=== PATIENT | female | born 1940 | race Caucasian/White ===

== ENCOUNTER 2019-04-20 06:17 | Inpatient (IN) ==
[2019-04-20] MEDS ORDERED: ALBUTEROL/IPRATROPIUM 3 ML NEB RESP TX PRN (08:55)
[2019-04-20] MEDS ORDERED: WARFARIN 2.5 MG TABLET PO SCH (09:00)
[2019-04-20] MEDS: niCARdipine INJ 25 MG in SODIUM CHLORIDE 0.9% 240 ML IV PRN ×2 (09:15→15:03)
[2019-04-20 11:00] LABS: Basophils % 0.5 % (0.0-0.8); Eosinophils # 0.2 10*3/uL (0.0-0.87); Hematocrit 37.7 VOL% (35.7-47.0); Hemoglobin 12.2 GM/DL (12.0-16.0); Immature Granulocytes % 0.9 %; Immature Granulocytes Absolute 0.07 #; Lymphocytes % 12.4 % (21.3-54.2); Mean Corpuscular HGB Conc 32.4 GM/DL (32-36); Mean Corpuscular Volume 97.2 FL (87-102); Mean Platelet Volume 10.2 FL (9.6-12.0); Monocytes % 7.2 % (1.7-12.7); Platelet Count 258 T/CUMM (130-400); Red Blood Count 3.88 MC/CUMM (3.8-5.5); Red Cell Distribution Width 13.6 % (9.3-17.3); White Blood Count 7.8 T/CUMM (4-12)
[2019-04-20 11:06] LABS: Calcium 8.7 MG/DL (8.5-10.1); Osmolality,Calculated 296.7 MOS/KG (273-304)
[2019-04-20 11:08] LABS: INR 2.5; PT Patient Result 26.5 SECS (9.6-12.2)
[2019-04-20] MEDS ORDERED: CARVEDILOL 6.25 MG TABLET PO SCH (14:30)
[2019-04-20] MEDS: MULTIVITAMIN (CENTRUM) TABLET PO SCH (14:49)
[2019-04-20] MEDS: hydrALAZINE 20 MG/1 ML VIAL IV PRN ×2 (18:22→23:19)
[2019-04-20] MEDS ORDERED: diphenhydrAMINE CAP 25 MG CAPSULE PO ONE (20:15)
[2019-04-20] MEDS: SODIUM CHLORIDE 0.9% 1,000 ML IV SCH (20:22)
[2019-04-20] MEDS: SIMVASTATIN 40 MG TABLET PO SCH (20:22)
[2019-04-20] MEDS: EZETIMIBE 10 MG TABLET PO SCH (20:22)
[2019-04-20] MEDS: FLUTICASONE/SALMETEROL 250-50 DISKUS 14 DOSE INH SCH (20:23)
[2019-04-20] MEDS ORDERED: hydrALAZINE 25 MG TABLET PO SCH (21:00)
[2019-04-21] MEDS: niCARdipine INJ 25 MG in SODIUM CHLORIDE 0.9% 240 ML IV PRN ×2 (04:25→06:48)
[2019-04-21 04:36] LABS: Basophils % 0.4 % (0.0-0.8); Eosinophils # 0.3 10*3/uL (0.0-0.87); Eosinophils % 2.6 % (0.00-10.9); Hematocrit 37.4 VOL% (35.7-47.0); Hemoglobin 11.6 GM/DL (12.0-16.0); Immature Granulocytes % 0.8 %; Immature Granulocytes Absolute 0.08 #; Lymphocytes # 1.4 10*3/uL (1.4-4.0); Lymphocytes % 13.7 % (21.3-54.2); Mean Corpuscular Volume 97.9 FL (87-102); Mean Platelet Volume 9.7 FL (9.6-12.0); Monocytes % 8.4 % (1.7-12.7); Neutrophils % 74.1 % (38.7-73.9); Platelet Count 251 T/CUMM (130-400); Red Blood Count 3.82 MC/CUMM (3.8-5.5); Red Cell Distribution Width 14.1 % (9.3-17.3); White Blood Count 9.9 T/CUMM (4-12)
[2019-04-21 04:48] LABS: Calcium 8.6 MG/DL (8.5-10.1); Osmolality,Calculated 297.8 MOS/KG (273-304)
[2019-04-21 05:18] LABS: PT Patient Result 21.3 SECS (9.6-12.2)
[2019-04-21] MEDS ORDERED: ceFAZolin 1,000 MG VIAL IRRIG ONE (06:30)
[2019-04-21] MEDS ORDERED: ceFAZolin 1,000 MG in SYRINGE 1 EACH IV ONE (06:30)
[2019-04-21] MEDS: hydrALAZINE 20 MG/1 ML VIAL IV PRN (06:49)
[2019-04-21] MEDS: SODIUM CHLORIDE 0.9% 1,000 ML IV SCH (07:04)
[2019-04-21] MEDS: FLUTICASONE/SALMETEROL 250-50 DISKUS 14 DOSE INH SCH ×3 (07:50→20:47)
[2019-04-21] MEDS ORDERED: FUROSEMIDE 40 MG/4 ML VIAL ONE (08:02)
[2019-04-21] MEDS ORDERED: hydrALAZINE 20 MG/1 ML VIAL IV ONE (08:04)
[2019-04-21] MEDS ORDERED: FUROSEMIDE 40 MG/4 ML VIAL IV ONE (08:05)
[2019-04-21] MEDS: NITROGLYCERIN DRIP 50 MG/250 ML BOTTLE IV PRN ×2 (08:18→19:24)
[2019-04-21 08:50] LABS: Amorphous Crystals,Urine Few /HPF (Few); Apearance,Urine Slightly Hazy (Clear); Bacteria,Urine Occasional /HPF (Few); Bilirubin,Urine Negative (Negative); Blood, Urine Negative (Negative); Glucose,Urine (UA) 50 mg/dL (Negative); Ketones,Urine Negative (Negative); Mucus,Urine Occasional /LPF (Occasional); Nitrite,Urine Negative (Negative); Protein,Urine >=500 MG/DL; RBC,Urine 9 /HPF (0-4); Squamous Epithelial Cell,Urine Occasional /HPF (0-10); Urine Color Yellow (Yellow); Urine Specific Gravity 1.012 (1.001-1.035); Urine Urobilinogen < 2.0 EU/DL (0.2-1.0); WBC,Urine 1 /HPF (0-6)
[2019-04-21] MEDS: methylPREDNISolone SOD SUC 40 MG/1 ML VIAL IV SCH ×3 (09:33→20:48)
[2019-04-21] MEDS: MULTIVITAMIN (CENTRUM) TABLET PO SCH (09:34)
[2019-04-21] MEDS: ALBUTEROL/IPRATROPIUM 3 ML NEB RESP TX SCH ×3 (10:50→19:00)
[2019-04-21] MEDS: FUROSEMIDE 40 MG/4 ML VIAL IV SCH ×2 (15:26→20:48)
[2019-04-21] MEDS ORDERED: hydrALAZINE 25 MG TABLET ONE (20:31)
[2019-04-21] MEDS: EZETIMIBE 10 MG TABLET PO SCH (20:48)
[2019-04-21] MEDS: SIMVASTATIN 40 MG TABLET PO SCH (20:48)
[2019-04-22] MEDS: methylPREDNISolone SOD SUC 40 MG/1 ML VIAL IV SCH ×4 (03:50→20:41)
[2019-04-22 04:45] LABS: Calcium 8.5 MG/DL (8.5-10.1); Osmolality,Calculated 305.7 MOS/KG (273-304)
[2019-04-22] MEDS: hydrALAZINE 20 MG/1 ML VIAL IV PRN ×2 (05:54→14:45)
[2019-04-22] MEDS: ALBUTEROL/IPRATROPIUM 3 ML NEB RESP TX SCH ×4 (07:29→19:13)
[2019-04-22 07:37] LABS: Basophils % 0.1 % (0.0-0.8); Hematocrit 33.7 VOL% (35.7-47.0); Hemoglobin 10.3 GM/DL (12.0-16.0); Immature Granulocytes % 0.7 %; Immature Granulocytes Absolute 0.05 #; Lymphocytes # 0.5 10*3/uL (1.4-4.0); Lymphocytes % 6.9 % (21.3-54.2); Mean Corpuscular HGB Conc 30.6 GM/DL (32-36); Mean Corpuscular Volume 98.5 FL (87-102); Monocytes % 1.1 % (1.7-12.7); Neutrophils % 91.2 % (38.7-73.9); Platelet Count 212 T/CUMM (130-400); Red Blood Count 3.42 MC/CUMM (3.8-5.5); Red Cell Distribution Width 14.3 % (9.3-17.3); White Blood Count 7.4 T/CUMM (4-12)
[2019-04-22 07:58] LABS: Band Neutrophils 1 % (0-10); Lymphocytes 6 % (20-55); Ovalocytes Slight; Platelet Estimate Adequate; Segmented Neutrophils 91 % (50-85); Total Cells Counted 100
[2019-04-22] MEDS: FUROSEMIDE 40 MG/4 ML VIAL IV SCH ×2 (08:07→16:58)
[2019-04-22] MEDS: MULTIVITAMIN (CENTRUM) TABLET PO SCH (08:07)
[2019-04-22] MEDS: FLUTICASONE/SALMETEROL 250-50 DISKUS 14 DOSE INH SCH ×2 (08:09→20:42)
[2019-04-22] MEDS: NITROGLYCERIN DRIP 50 MG/250 ML BOTTLE IV PRN ×2 (08:20→15:50)
[2019-04-22] MEDS ORDERED: ceFAZolin 1,000 MG in SYRINGE 1 EACH IV ONE (09:31)
[2019-04-22] MEDS ORDERED: ceFAZolin 1,000 MG VIAL IRRIG ONE (09:31)
[2019-04-22 12:54] LABS: INR 1.7; PT Patient Result 18.3 SECS (9.6-12.2)
[2019-04-22] MEDS ORDERED: NITROPRUSSIDE 50 MG/2 ML VIAL ONE (15:45)
[2019-04-22] MEDS: NITROPRUSSIDE 100 MG in DEXTROSE 5% 246 ML IV PRN (15:50)
[2019-04-22] MEDS ORDERED: amLODIPine 5 MG TABLET PO ONE (16:39)
[2019-04-22] MEDS ORDERED: SIMVASTATIN 40 MG TABLET PO SCH (16:40)
[2019-04-22] MEDS: CARVEDILOL 25 MG TABLET PO SCH (16:55)
[2019-04-22] MEDS: EZETIMIBE 10 MG TABLET PO SCH (20:40)
[2019-04-22] MEDS ORDERED: FUROSEMIDE 40 MG/4 ML VIAL IV SCH (21:00)
[2019-04-23] MEDS: methylPREDNISolone SOD SUC 40 MG/1 ML VIAL IV SCH ×3 (03:17→21:45)
[2019-04-23 04:26] LABS: Basophils % 0.1 % (0.0-0.8); Hematocrit 31.2 VOL% (35.7-47.0); Hemoglobin 9.8 GM/DL (12.0-16.0); Immature Granulocytes % 0.7 %; Immature Granulocytes Absolute 0.09 #; Lymphocytes # 0.5 10*3/uL (1.4-4.0); Lymphocytes % 4.2 % (21.3-54.2); Mean Corpuscular HGB Conc 31.4 GM/DL (32-36); Mean Platelet Volume 10.1 FL (9.6-12.0); Monocytes % 2.1 % (1.7-12.7); Neutrophils % 92.9 % (38.7-73.9); Platelet Count 210 T/CUMM (130-400); Red Blood Count 3.25 MC/CUMM (3.8-5.5); Red Cell Distribution Width 14.3 % (9.3-17.3); White Blood Count 12.5 T/CUMM (4-12)
[2019-04-23] MEDS ORDERED: SODIUM CHLORIDE 0.9% 1,000 ML IV SCH (04:30)
[2019-04-23 04:32] LABS: INR 1.5; PT Patient Result 16.3 SECS (9.6-12.2)
[2019-04-23 04:49] LABS: Hypochromasia Slight; Lymphocytes 2 % (20-55); Platelet Estimate Adequate; Segmented Neutrophils 93 % (50-85); Total Cells Counted 100
[2019-04-23 05:07] LABS: Calcium 8.1 MG/DL (8.5-10.1); Osmolality,Calculated 300.7 MOS/KG (273-304)
[2019-04-23] MEDS: ALBUTEROL/IPRATROPIUM 3 ML NEB RESP TX SCH ×4 (07:08→20:20)
[2019-04-23] MEDS: CARVEDILOL 25 MG TABLET PO SCH ×2 (08:44→17:10)
[2019-04-23] MEDS: MULTIVITAMIN (CENTRUM) TABLET PO SCH (08:45)
[2019-04-23] MEDS: FLUTICASONE/SALMETEROL 250-50 DISKUS 14 DOSE INH SCH ×2 (08:45→21:49)
[2019-04-23] MEDS ORDERED: amLODIPine 5 MG TABLET PO SCH ×2 (09:00→21:00)
[2019-04-23] MEDS ORDERED: fentaNYL 100 MCG/2 ML VIAL ONE (09:11)
[2019-04-23] MEDS ORDERED: LIDOCAINE 1% 20 ML VIAL ONE (09:11)
[2019-04-23] MEDS ORDERED: MIDAZOLAM 2 MG/2 ML VIAL ONE (09:11)
[2019-04-23] MEDS ORDERED: HEPARIN/NACL 0.9% 2 UNITS/ML 500 ML IV ONE (09:11)
[2019-04-23] MEDS ORDERED: ceFAZolin 1,000 MG VIAL ONE (09:13)
[2019-04-23] MEDS ORDERED: NITROPRUSSIDE 50 MG/2 ML VIAL ONE (09:28)
[2019-04-23] MEDS ORDERED: TISSUE ADHESIVE 1 EACH APPLICATOR TOP ONE (10:27)
[2019-04-23] MEDS ORDERED: oxyCODONE/ACETAMINOPHEN 5-325 MG TABLET PO PRN (10:34)
[2019-04-23] MEDS ORDERED: ACETAMINOPHEN 325 MG TABLET PO PRN (10:34)
[2019-04-23] MEDS ORDERED: methylPREDNISolone SOD SUC 40 MG/1 ML VIAL IV SCH (11:00)
[2019-04-23] MEDS: ISOSORBIDE MONONITRATE 60 MG TABLET PO SCH (13:03)
[2019-04-23] MEDS: NITROPRUSSIDE 100 MG in DEXTROSE 5% 246 ML IV PRN (15:19)
[2019-04-23 15:57] LABS: Apearance,Urine CLOUDY (Clear); Bacteria,Urine Occasional /HPF (Few); Bilirubin,Urine Negative (Negative); Blood, Urine Small mg/dL (Negative); Glucose,Urine (UA) Negative (Negative); Hyaline Casts,Urine 11 /LPF (0-3); Ketones,Urine Negative (Negative); Mucus,Urine Occasional /LPF (Occasional); Nitrite,Urine Negative (Negative); Protein,Urine 100 MG/DL; RBC,Urine 6 /HPF (0-4); Squamous Epithelial Cell,Urine Occasional /HPF (0-10); Urine Color Yellow (Yellow); Urine Specific Gravity 1.014 (1.001-1.035); Urine Urobilinogen < 2.0 EU/DL (0.2-1.0); WBC,Urine 10 /HPF (0-6)
[2019-04-23] MEDS: ceFAZolin 1,000 MG in SYRINGE 1 EACH IV SCH ×2 (17:10→23:45)
[2019-04-23] MEDS: EZETIMIBE 10 MG TABLET PO SCH (21:47)
[2019-04-23] MEDS: SIMVASTATIN 10 MG TABLET PO SCH (21:50)
[2019-04-24 04:29] LABS: Basophils % 0.1 % (0.0-0.8); Hematocrit 32.5 VOL% (35.7-47.0); Immature Granulocytes % 1.1 %; Immature Granulocytes Absolute 0.09 #; Lymphocytes # 0.4 10*3/uL (1.4-4.0); Lymphocytes % 4.1 % (21.3-54.2); Mean Corpuscular HGB Conc 30.8 GM/DL (32-36); Mean Platelet Volume 9.8 FL (9.6-12.0); Monocytes % 3.2 % (1.7-12.7); Neutrophils % 91.5 % (38.7-73.9); Platelet Count 201 T/CUMM (130-400); Red Blood Count 3.35 MC/CUMM (3.8-5.5); Red Cell Distribution Width 13.9 % (9.3-17.3); White Blood Count 8.5 T/CUMM (4-12)
[2019-04-24] MEDS: methylPREDNISolone SOD SUC 40 MG/1 ML VIAL IV SCH ×3 (04:30→20:36)
[2019-04-24 04:51] LABS: Calcium 7.9 MG/DL (8.5-10.1); Osmolality,Calculated 307.7 MOS/KG (273-304)
[2019-04-24 05:02] LABS: Band Neutrophils 10 % (0-10); Lymphocytes 3 % (20-55); Platelet Estimate Normal; Segmented Neutrophils 84 % (50-85); Total Cells Counted 100
[2019-04-24 05:03] LABS: Anisocytosis Slight
[2019-04-24] MEDS: ALBUTEROL/IPRATROPIUM 3 ML NEB RESP TX SCH ×4 (07:11→19:32)
[2019-04-24] MEDS: ISOSORBIDE MONONITRATE 60 MG TABLET PO SCH (08:05)
[2019-04-24] MEDS: MULTIVITAMIN (CENTRUM) TABLET PO SCH (08:05)
[2019-04-24] MEDS: CARVEDILOL 25 MG TABLET PO SCH ×2 (08:06→17:24)
[2019-04-24] MEDS: FLUTICASONE/SALMETEROL 250-50 DISKUS 14 DOSE INH SCH ×2 (08:08→20:39)
[2019-04-24] MEDS: cephALEXin 500 MG CAPSULE PO SCH ×2 (09:33→20:35)
[2019-04-24] MEDS: DILTIAZEM CD 300 MG CAPSULE PO SCH (09:34)
[2019-04-24] MEDS ORDERED: WARFARIN 2.5 MG TABLET PO SCH (18:00)
[2019-04-24] MEDS: SIMVASTATIN 10 MG TABLET PO SCH (20:35)
[2019-04-24] MEDS: EZETIMIBE 10 MG TABLET PO SCH (20:35)
[2019-04-25 04:58] LABS: INR 1.4; PT Patient Result 15.2 SECS (9.6-12.2)
[2019-04-25 05:10] LABS: Calcium 7.8 MG/DL (8.5-10.1); Osmolality,Calculated 313.7 MOS/KG (273-304)
[2019-04-25] MEDS: ALBUTEROL/IPRATROPIUM 3 ML NEB RESP TX SCH ×2 (08:26→11:27)
[2019-04-25] MEDS: methylPREDNISolone SOD SUC 40 MG/1 ML VIAL IV SCH (08:30)
[2019-04-25] MEDS: ISOSORBIDE MONONITRATE 60 MG TABLET PO SCH (09:33)
[2019-04-25] MEDS: MULTIVITAMIN (CENTRUM) TABLET PO SCH (09:33)
[2019-04-25] MEDS: DILTIAZEM CD 300 MG CAPSULE PO SCH (09:33)
[2019-04-25] MEDS: cephALEXin 500 MG CAPSULE PO SCH (09:33)
[2019-04-25] MEDS: FLUTICASONE/SALMETEROL 250-50 DISKUS 14 DOSE INH SCH (09:34)
[2019-04-25] MEDS: CARVEDILOL 25 MG TABLET PO SCH (09:34)
[2019-04-25 12:10] VITALS: BP 130/95
== END 2019-04-25 15:50 | disposition home or self-care (01) | DRG 242 ==
LOC: N.CL 06:17 → N.ICU 08:50 → N.TELES 04-24 15:34
PROVIDERS: ADMIT Internal Medicine Cardiovascular Disease; ATTEND Internal Medicine Cardiovascular Disease

== ENCOUNTER 2019-08-18 11:04 | Inpatient (IN) ==
[2019-08-18] MEDS ORDERED: SODIUM CHLORIDE 0.9% 1,000 ML IV STA (11:28)
[2019-08-18 12:11] LABS: Basophils # 0.1 10*3/uL (0.0-0.2); Basophils % 0.3 % (0.0-0.8); Eosinophils % 0.1 % (0.00-10.9); Hematocrit 43.2 VOL% (35.7-47.0); Hemoglobin 13.1 GM/DL (12.0-16.0); Immature Granulocytes Absolute 0.15 #; Lymphocytes # 1.1 10*3/uL (1.4-4.0); Lymphocytes % 7.2 % (21.3-54.2); Mean Corpuscular HGB Conc 30.3 GM/DL (32-36); Mean Corpuscular Volume 86.6 FL (87-102); Mean Platelet Volume 10.3 FL (9.6-12.0); Monocytes % 7.3 % (1.7-12.7); Neutrophils % 84.1 % (38.7-73.9); Platelet Count 220 T/CUMM (130-400); Red Blood Count 4.99 MC/CUMM (3.8-5.5); Red Cell Distribution Width 17.3 % (9.3-17.3); White Blood Count 15.5 T/CUMM (4-12)
[2019-08-18 12:19] LABS: INR 1.2; PT Patient Result 12.7 SECS (9.6-12.2); Partial Thromboplastin Time 25.4 SECS (20.8-36.0)
[2019-08-18 12:27] LABS: Amorphous Crystals,Urine Occasional /HPF (Few); Apearance,Urine CLOUDY (Clear); Bacteria,Urine Occasional /HPF (Few); Bilirubin,Urine Negative (Negative); Blood, Urine Small mg/dL (Negative); Glucose,Urine (UA) 50 mg/dL (Negative); Hyaline Casts,Urine 20 /LPF (0-3); Ketones,Urine Negative (Negative); Mucus,Urine Occasional /LPF (Occasional); Nitrite,Urine Negative (Negative); Protein,Urine >=500 MG/DL; RBC,Urine 3 /HPF (0-4); Squamous Epithelial Cell,Urine Occasional /HPF (0-10); Urine Color Amber (Yellow); Urine Specific Gravity 1.025 (1.001-1.035); Urine Urobilinogen < 2.0 EU/DL (0.2-1.0); WBC,Urine 3 /HPF (0-6)
[2019-08-18 12:34] LABS: Barbiturates Screen,Urine Negative (Negative); Benzodiazepines Screen,Urine Negative (Negative); Cannabinoid Screen,Urine Negative (Negative); Opiate Screen,Urine Negative (Negative); Phencyclidine Screen,Urine Negative (Negative)
[2019-08-18 12:36] LABS: Albumin 2.4 G/DL (3.4-5.0); Bilirubin,Total 0.4 MG/DL (0.2-1.0); Calcium 8.6 MG/DL (8.5-10.1); Osmolality,Calculated 307.6 MOS/KG (273-304); Total Protein 5.8 G/DL (6.4-8.3)
[2019-08-18] MEDS ORDERED: PIPERACILLIN/TAZOBACTAM 3,375 MG in SODIUM CHLORIDE 0.9% 100 ML IV STA (13:00)
[2019-08-18] MEDS ORDERED: hydrALAZINE 20 MG/1 ML VIAL IV STA (13:40)
[2019-08-18] MEDS ORDERED: ONDANSETRON 4 MG/2 ML VIAL IV PRN (13:58)
[2019-08-18] MEDS ORDERED: ENOXAPARIN 30 MG/0.3 ML SYRINGE SUBCUT SCH (14:00)
[2019-08-18] MEDS: SODIUM CHLORIDE 0.45% 1,000 ML IV SCH ×2 (15:43→23:25)
[2019-08-18] MEDS: FAMOTIDINE 20 MG/2 ML VIAL IV SCH (15:44)
[2019-08-18] MEDS: ENOXAPARIN 80 MG/0.8 ML SYRINGE SUBCUT SCH (15:45)
[2019-08-19 03:17] LABS: ABG Base Excess -6.8 MMOL/L (-2.5-2.5); ABG HCO3 17.1 MMOL/L (20-26); ABG Oxygen Saturation 96.9 % (95-100); ABG PCO2 29.3 MM HG (35-48); ABG PH 7.384 (7.35-7.45); ABG PO2 101.8 MM HG (80-95); Allen Test Positive
[2019-08-19] MEDS ORDERED: MORPHINE 4 MG/1 ML VIAL IV ONE (03:35)
[2019-08-19] MEDS: SODIUM CHLORIDE 0.45% 1,000 ML IV SCH (03:58)
[2019-08-19 05:57] LABS: Basophils % 0.4 % (0.0-0.8); Eosinophils # 0.1 10*3/uL (0.0-0.87); Hematocrit 36.2 VOL% (35.7-47.0); Hemoglobin 10.8 GM/DL (12.0-16.0); Immature Granulocytes % 0.5 %; Immature Granulocytes Absolute 0.05 #; Lymphocytes # 0.6 10*3/uL (1.4-4.0); Mean Corpuscular HGB Conc 29.8 GM/DL (32-36); Mean Corpuscular Volume 86.4 FL (87-102); Mean Platelet Volume 10.5 FL (9.6-12.0); Neutrophils % 86.1 % (38.7-73.9); Platelet Count 190 T/CUMM (130-400); Red Blood Count 4.19 MC/CUMM (3.8-5.5); Red Cell Distribution Width 17.2 % (9.3-17.3); White Blood Count 9.2 T/CUMM (4-12)
[2019-08-19 06:17] LABS: Calcium 8.1 MG/DL (8.5-10.1); Osmolality,Calculated 320.7 MOS/KG (273-304)
[2019-08-19] MEDS: FAMOTIDINE 20 MG/2 ML VIAL IV SCH (08:34)
[2019-08-19] MEDS: ENOXAPARIN 80 MG/0.8 ML SYRINGE SUBCUT SCH (08:34)
[2019-08-19] MEDS: DEXTROSE 5% 1,000 ML IV SCH ×2 (10:12→20:50)
[2019-08-20 06:00] LABS: Calcium 7.8 MG/DL (8.5-10.1); Osmolality,Calculated 314.9 MOS/KG (273-304)
[2019-08-20] MEDS: hydrALAZINE 20 MG/1 ML VIAL IV PRN ×2 (08:52→13:09)
[2019-08-20] MEDS: FAMOTIDINE 20 MG/2 ML VIAL IV SCH (08:52)
[2019-08-20] MEDS: ENOXAPARIN 80 MG/0.8 ML SYRINGE SUBCUT SCH (08:52)
[2019-08-20] MEDS ORDERED: DOXAZOSIN 2 MG TABLET PO SCH (15:30)
[2019-08-20] MEDS: DOXAZOSIN 4 MG TABLET PO SCH (17:19)
[2019-08-20] MEDS: carvediloL 25 MG TABLET PO SCH (17:19)
[2019-08-20] MEDS: WARFARIN 2.5 MG TABLET PO SCH (17:39)
[2019-08-20] MEDS: DEXTROSE 5% 1,000 ML IV SCH ×3 (17:45→19:11)
[2019-08-20] MEDS: SIMVASTATIN 40 MG TABLET PO SCH (21:28)
[2019-08-21] MEDS: DEXTROSE 5% 1,000 ML IV SCH ×2 (05:08→15:41)
[2019-08-21 05:25] LABS: Albumin 1.9 G/DL (3.4-5.0); Calcium 7.9 MG/DL (8.5-10.1); Osmolality,Calculated 308.4 MOS/KG (273-304)
[2019-08-21] MEDS: FAMOTIDINE 20 MG/2 ML VIAL IV SCH (09:14)
[2019-08-21] MEDS: ENOXAPARIN 80 MG/0.8 ML SYRINGE SUBCUT SCH (09:14)
[2019-08-21] MEDS: carvediloL 25 MG TABLET PO SCH ×2 (09:15→16:36)
[2019-08-21] MEDS: DOXAZOSIN 4 MG TABLET PO SCH (09:15)
[2019-08-21] MEDS: WARFARIN 2.5 MG TABLET PO SCH (17:34)
[2019-08-21] MEDS: SIMVASTATIN 40 MG TABLET PO SCH (22:12)
[2019-08-22] MEDS: DEXTROSE 5% 1,000 ML IV SCH (01:33)
[2019-08-22 07:22] LABS: Basophils % 0.3 % (0.0-0.8); Eosinophils # 0.3 10*3/uL (0.0-0.87); Eosinophils % 3.6 % (0.00-10.9); Hematocrit 29.5 VOL% (35.7-47.0); Hemoglobin 8.9 GM/DL (12.0-16.0); Immature Granulocytes % 1.5 %; Immature Granulocytes Absolute 0.11 #; Lymphocytes # 0.7 10*3/uL (1.4-4.0); Lymphocytes % 9.6 % (21.3-54.2); Mean Corpuscular HGB Conc 30.2 GM/DL (32-36); Mean Corpuscular Volume 86.3 FL (87-102); Mean Platelet Volume 11.2 FL (9.6-12.0); Platelet Count 170 T/CUMM (130-400); Red Blood Count 3.42 MC/CUMM (3.8-5.5); White Blood Count 7.3 T/CUMM (4-12)
[2019-08-22 07:45] LABS: Calcium 7.9 MG/DL (8.5-10.1)
[2019-08-22] MEDS: carvediloL 25 MG TABLET PO SCH ×2 (08:56→17:54)
[2019-08-22] MEDS: FAMOTIDINE 20 MG/2 ML VIAL IV SCH (08:59)
[2019-08-22] MEDS: ENOXAPARIN 80 MG/0.8 ML SYRINGE SUBCUT SCH (09:00)
[2019-08-22] MEDS: DOXAZOSIN 4 MG TABLET PO SCH (10:46)
[2019-08-22] MEDS: SODIUM CHLORIDE 0.9% 1,000 ML IV SCH (11:01)
[2019-08-22 16:07] LABS: PT Patient Result 62.6 SECS (9.6-12.2)
[2019-08-22 16:09] LABS: INR 5.8
[2019-08-22] MEDS: SIMVASTATIN 40 MG TABLET PO SCH (21:53)
[2019-08-23 05:58] LABS: Basophils % 0.4 % (0.0-0.8); Eosinophils # 0.3 10*3/uL (0.0-0.87); Eosinophils % 4.6 % (0.00-10.9); Hematocrit 27.7 VOL% (35.7-47.0); Hemoglobin 8.4 GM/DL (12.0-16.0); Immature Granulocytes Absolute 0.11 #; Lymphocytes # 0.8 10*3/uL (1.4-4.0); Lymphocytes % 15.4 % (21.3-54.2); Mean Corpuscular HGB Conc 30.3 GM/DL (32-36); Mean Platelet Volume 11.1 FL (9.6-12.0); Monocytes % 12.2 % (1.7-12.7); Neutrophils % 65.4 % (38.7-73.9); Platelet Count 179 T/CUMM (130-400); Red Blood Count 3.22 MC/CUMM (3.8-5.5); Red Cell Distribution Width 15.9 % (9.3-17.3); White Blood Count 5.5 T/CUMM (4-12)
[2019-08-23 06:01] LABS: INR 1.3; PT Patient Result 13.8 SECS (9.6-12.2)
[2019-08-23 06:35] LABS: Calcium 7.7 MG/DL (8.5-10.1); Osmolality,Calculated 289.5 MOS/KG (273-304)
[2019-08-23] MEDS ORDERED: BENZONATATE 100 MG CAPSULE PO PRN (09:27)
[2019-08-23] MEDS: carvediloL 25 MG TABLET PO SCH ×2 (09:28→16:43)
[2019-08-23] MEDS: FAMOTIDINE 20 MG/2 ML VIAL IV SCH (09:28)
[2019-08-23] MEDS: hydrALAZINE 20 MG/1 ML VIAL IV PRN (11:35)
[2019-08-23] MEDS: SODIUM CHLORIDE 0.9% 1,000 ML IV SCH (16:44)
[2019-08-23] MEDS: WARFARIN 2.5 MG TABLET PO SCH (17:34)
[2019-08-23] MEDS: SIMVASTATIN 40 MG TABLET PO SCH (22:29)
[2019-08-24 05:45] LABS: Basophils % 0.4 % (0.0-0.8); Eosinophils # 0.3 10*3/uL (0.0-0.87); Eosinophils % 3.8 % (0.00-10.9); Hematocrit 28.2 VOL% (35.7-47.0); Hemoglobin 8.5 GM/DL (12.0-16.0); Immature Granulocytes Absolute 0.14 #; Lymphocytes # 0.6 10*3/uL (1.4-4.0); Lymphocytes % 9.3 % (21.3-54.2); Mean Corpuscular HGB Conc 30.1 GM/DL (32-36); Mean Corpuscular Volume 86.5 FL (87-102); Mean Platelet Volume 10.8 FL (9.6-12.0); Monocytes % 11.9 % (1.7-12.7); Neutrophils % 72.6 % (38.7-73.9); Platelet Count 186 T/CUMM (130-400); Red Blood Count 3.26 MC/CUMM (3.8-5.5); Red Cell Distribution Width 16.2 % (9.3-17.3); White Blood Count 6.9 T/CUMM (4-12)
[2019-08-24 05:53] LABS: INR 1.2; PT Patient Result 13.2 SECS (9.6-12.2)
[2019-08-24 06:37] LABS: Calcium 7.9 MG/DL (8.5-10.1); Osmolality,Calculated 303.3 MOS/KG (273-304)
[2019-08-24] MEDS: carvediloL 25 MG TABLET PO SCH ×2 (08:38→17:05)
[2019-08-24] MEDS: FAMOTIDINE 20 MG/2 ML VIAL IV SCH (08:39)
[2019-08-24] MEDS: SODIUM CHLORIDE 0.9% 1,000 ML IV SCH (11:27)
[2019-08-24] MEDS: SKIN HEALING OINT (AQUAPHOR) 50 GM TUBE TOP SCH ×2 (12:09→22:09)
[2019-08-24] MEDS: ACETAMINOPHEN 325 MG TABLET PO PRN (15:52)
[2019-08-24] MEDS: WARFARIN 2.5 MG TABLET PO SCH (17:05)
[2019-08-24] MEDS: SIMVASTATIN 40 MG TABLET PO SCH (22:07)
[2019-08-25] MEDS: hydrALAZINE 20 MG/1 ML VIAL IV PRN ×3 (00:52→23:37)
[2019-08-25] MEDS: SKIN HEALING OINT (AQUAPHOR) 50 GM TUBE TOP SCH ×2 (08:53→21:18)
[2019-08-25] MEDS: carvediloL 25 MG TABLET PO SCH ×2 (08:53→17:22)
[2019-08-25] MEDS: FAMOTIDINE 20 MG/2 ML VIAL IV SCH (08:53)
[2019-08-25] MEDS ORDERED: TUBERCULIN SKIN TEST 0.1 ML SYRINGE INTRADERM ONE (11:17)
[2019-08-25] MEDS: ACETAMINOPHEN 325 MG TABLET PO PRN ×2 (11:59→22:16)
[2019-08-25] MEDS: WARFARIN 2.5 MG TABLET PO SCH (17:22)
[2019-08-25] MEDS: SIMVASTATIN 40 MG TABLET PO SCH (21:17)
[2019-08-26 05:31] LABS: INR 1.3; PT Patient Result 14.1 SECS (9.6-12.2)
[2019-08-26 05:36] LABS: Basophils % 0.4 % (0.0-0.8); Eosinophils # 0.3 10*3/uL (0.0-0.87); Eosinophils % 3.8 % (0.00-10.9); Hematocrit 28.6 VOL% (35.7-47.0); Hemoglobin 8.6 GM/DL (12.0-16.0); Immature Granulocytes % 1.4 %; Lymphocytes # 1.1 10*3/uL (1.4-4.0); Lymphocytes % 15.1 % (21.3-54.2); Mean Corpuscular HGB Conc 30.1 GM/DL (32-36); Mean Corpuscular Volume 87.7 FL (87-102); Mean Platelet Volume 10.4 FL (9.6-12.0); Monocytes % 10.5 % (1.7-12.7); Neutrophils % 68.8 % (38.7-73.9); Platelet Count 208 T/CUMM (130-400); Red Blood Count 3.26 MC/CUMM (3.8-5.5); Red Cell Distribution Width 16.7 % (9.3-17.3); White Blood Count 7.3 T/CUMM (4-12)
[2019-08-26 05:53] LABS: Calcium 8.3 MG/DL (8.5-10.1); Osmolality,Calculated 295.7 MOS/KG (273-304)
[2019-08-26 07:34] LABS: Risk Ratio 3.64; VLDL CHOLESTEROL 27.4 MG/DL
[2019-08-26] MEDS ORDERED: amLODIPine 5 MG TABLET PO SCH (09:00)
[2019-08-26] MEDS: SKIN HEALING OINT (AQUAPHOR) 50 GM TUBE TOP SCH ×2 (10:35→21:19)
[2019-08-26] MEDS: FAMOTIDINE 20 MG/2 ML VIAL IV SCH (10:35)
[2019-08-26] MEDS: carvediloL 25 MG TABLET PO SCH ×2 (10:36→18:08)
[2019-08-26] MEDS ORDERED: carvediloL 25 MG TABLET PO SCH (14:40)
[2019-08-26] MEDS: WARFARIN 3 MG TABLET PO SCH ×2 (20:05→21:06)
[2019-08-26] MEDS ORDERED: DOXAZOSIN 4 MG TABLET PO SCH (21:00)
[2019-08-26] MEDS: SIMVASTATIN 40 MG TABLET PO SCH (21:07)
[2019-08-27] MEDS: FAMOTIDINE 20 MG/2 ML VIAL IV SCH (10:55)
[2019-08-27] MEDS: carvediloL 25 MG TABLET PO SCH (10:56)
[2019-08-27] MEDS: SKIN HEALING OINT (AQUAPHOR) 50 GM TUBE TOP SCH (10:56)
[2019-08-27 12:10] VITALS: BP 176/40
== END 2019-08-27 15:43 | DRG 683 ==
LOC: N.ED 11:04 → N.EDINP 13:58 → SUATTDRO 13:58 → N.2E 15:21
PROVIDERS: ADMIT Internal Medicine Geriatric Medicine; ATTEND Internal Medicine

== ENCOUNTER 2019-10-02 07:58 | Inpatient (IN) ==
[2019-10-02 08:28] LABS: Basophils % 0.3 % (0.0-0.8); Eosinophils # 0.2 10*3/uL (0.0-0.87); Eosinophils % 2.1 % (0.00-10.9); Hematocrit 24.8 VOL% (35.7-47.0); Hemoglobin 7.4 GM/DL (12.0-16.0); Immature Granulocytes % 1.4 %; Immature Granulocytes Absolute 0.11 #; Lymphocytes # 0.9 10*3/uL (1.4-4.0); Lymphocytes % 11.7 % (21.3-54.2); Mean Corpuscular HGB Conc 29.8 GM/DL (32-36); Mean Corpuscular Volume 86.1 FL (87-102); Mean Platelet Volume 9.3 FL (9.6-12.0); Monocytes % 8.4 % (1.7-12.7); Neutrophils % 76.1 % (38.7-73.9); Platelet Count 393 T/CUMM (130-400); Red Blood Count 2.88 MC/CUMM (3.8-5.5); Red Cell Distribution Width 16.2 % (9.3-17.3); White Blood Count 7.8 T/CUMM (4-12)
[2019-10-02 08:50] LABS: Alanine Aminotransferase 36 U/L (13-56); Alkaline Phosphatase 76 U/L (45-117); Aspartate Amino Transferase 22 U/L (0-37); Bilirubin,Total < 0.39 MG/DL (0.2-1.0); Blood Urea Nitrogen 99 MG/DL (7-18); Calcium 9.3 MG/DL (8.5-10.1); Estimated Glom Filtration Rate 16 ML/MIN; Glucose 103 MG/DL (74-106); Osmolality,Calculated 300.1 MOS/KG (273-304); Total Protein 7.5 G/DL (6.4-8.3)
[2019-10-02 09:04] LABS: Apearance,Urine CLOUDY (Clear); Bacteria,Urine Many /HPF (Few); Bilirubin,Urine Negative (Negative); Blood, Urine Small mg/dL (Negative); Glucose,Urine (UA) Negative (Negative); Ketones,Urine Negative (Negative); Mucus,Urine Occasional /LPF (Occasional); Nitrite,Urine Negative (Negative); Protein,Urine 100 MG/DL; RBC,Urine 17 /HPF (0-4); Squamous Epithelial Cell,Urine Moderate /HPF (0-10); Urine Color Yellow (Yellow); Urine Specific Gravity 1.013 (1.001-1.035); Urine Urobilinogen < 2.0 EU/DL (0.2-1.0); WBC,Urine 781 /HPF (0-6)
[2019-10-02 09:30] LABS: INR 4.3; PT Patient Result 46.6 SECS (9.6-12.2); Partial Thromboplastin Time 69.7 SECS (20.8-36.0)
[2019-10-02] MEDS ORDERED: SODIUM CHLORIDE 0.9% 1,000 ML IV PRN ×2 (10:15→16:36)
[2019-10-02] MEDS ORDERED: cefTRIAXone 1,000 MG in SODIUM CHLORIDE 0.9% 100 ML IV STA (10:16)
[2019-10-02] MEDS ORDERED: cefTRIAXone 1,000 MG in SYRINGE 1 EACH IV STA (10:23)
[2019-10-02] MEDS ORDERED: ONDANSETRON 4 MG/2 ML VIAL IV PRN (10:39)
[2019-10-02] MEDS: hydrALAZINE 20 MG/1 ML VIAL IV PRN ×2 (10:55→17:20)
[2019-10-02] MEDS ORDERED: SODIUM CHLORIDE 0.9% 100 ML IV ONE (11:01)
[2019-10-02 11:12] LABS: Risk Ratio 2.58; VLDL CHOLESTEROL 24.8 MG/DL
[2019-10-02 11:26] LABS: Thyroid Stimulating Hormone 1.9 uIU/ml (0.358-3.74)
[2019-10-02] MEDS ORDERED: cloNIDine 0.2 MG/24 HR PATCH TRANSDERM SCH (12:00)
[2019-10-02] MEDS: PANTOPRAZOLE 40 MG TABLET PO SCH (18:07)
[2019-10-02] MEDS: ACETAMINOPHEN 325 MG TABLET PO PRN (20:16)
[2019-10-02] MEDS ORDERED: PANTOPRAZOLE 40 MG VIAL IV SCH (21:00)
[2019-10-03 05:02] LABS: Basophils % 0.4 % (0.0-0.8); Eosinophils # 0.1 10*3/uL (0.0-0.87); Eosinophils % 1.3 % (0.00-10.9); Hematocrit 33.1 VOL% (35.7-47.0); Hemoglobin 10.1 GM/DL (12.0-16.0); Immature Granulocytes % 0.8 %; Immature Granulocytes Absolute 0.07 #; Lymphocytes # 0.7 10*3/uL (1.4-4.0); Lymphocytes % 8.9 % (21.3-54.2); Mean Corpuscular HGB Conc 30.5 GM/DL (32-36); Mean Corpuscular Volume 86.2 FL (87-102); Mean Platelet Volume 9.2 FL (9.6-12.0); Neutrophils % 80.6 % (38.7-73.9); Platelet Count 372 T/CUMM (130-400); Red Blood Count 3.84 MC/CUMM (3.8-5.5); Red Cell Distribution Width 16.1 % (9.3-17.3); White Blood Count 8.3 T/CUMM (4-12)
[2019-10-03 05:13] LABS: INR 3.5
[2019-10-03] MEDS: hydrALAZINE 20 MG/1 ML VIAL IV PRN (05:16)
[2019-10-03 05:32] LABS: Calcium 9.4 MG/DL (8.5-10.1); Osmolality,Calculated 301.7 MOS/KG (273-304)
[2019-10-03 05:35] LABS: PT Patient Result 37.6 SECS (9.6-12.2)
[2019-10-03] MEDS: PANTOPRAZOLE 40 MG TABLET PO SCH ×2 (07:10→18:29)
[2019-10-03] MEDS: LINACLOTIDE 145 MCG CAPSULE PO SCH (08:40)
[2019-10-03] MEDS: carvediloL 25 MG TABLET PO SCH ×2 (09:22→20:51)
[2019-10-03] MEDS: cefTRIAXone 1,000 MG in SYRINGE 1 EACH IV SCH (11:16)
[2019-10-03] MEDS: ISOSORBIDE MONONITRATE 60 MG TABLET PO SCH (11:16)
[2019-10-03] MEDS: SODIUM BICARB INJ 50 MEQ in SODIUM CHLORIDE 0.45% 1,000 ML IV SCH (11:34)
[2019-10-04 05:28] LABS: Basophils % 0.4 % (0.0-0.8); Eosinophils # 0.2 10*3/uL (0.0-0.87); Eosinophils % 2.8 % (0.00-10.9); Hemoglobin 9.4 GM/DL (12.0-16.0); Immature Granulocytes % 1.5 %; Lymphocytes # 0.8 10*3/uL (1.4-4.0); Lymphocytes % 11.3 % (21.3-54.2); Mean Corpuscular HGB Conc 31.3 GM/DL (32-36); Mean Corpuscular Volume 84.7 FL (87-102); Monocytes % 10.7 % (1.7-12.7); Neutrophils % 73.3 % (38.7-73.9); Platelet Count 339 T/CUMM (130-400); Red Blood Count 3.54 MC/CUMM (3.8-5.5); Red Cell Distribution Width 16.2 % (9.3-17.3); White Blood Count 6.9 T/CUMM (4-12)
[2019-10-04 05:39] LABS: INR 3.1
[2019-10-04 05:49] LABS: Calcium 8.9 MG/DL (8.5-10.1); Osmolality,Calculated 300.5 MOS/KG (273-304)
[2019-10-04 05:50] LABS: Calcium 9.2 MG/DL (8.5-10.1); Osmolality,Calculated 291.2 MOS/KG (273-304)
[2019-10-04 05:58] LABS: PT Patient Result 33.6 SECS (9.6-12.2)
[2019-10-04] MEDS: PANTOPRAZOLE 40 MG TABLET PO SCH ×2 (06:04→17:37)
[2019-10-04] MEDS: SODIUM BICARB INJ 50 MEQ in SODIUM CHLORIDE 0.45% 1,000 ML IV SCH (08:46)
[2019-10-04] MEDS: LINACLOTIDE 145 MCG CAPSULE PO SCH (08:47)
[2019-10-04] MEDS: BISACODYL 5 MG TABLET PO SCH ×2 (08:48→16:40)
[2019-10-04] MEDS: carvediloL 25 MG TABLET PO SCH ×2 (08:48→21:09)
[2019-10-04] MEDS: ISOSORBIDE MONONITRATE 60 MG TABLET PO SCH (08:48)
[2019-10-04] MEDS: cefTRIAXone 1,000 MG in SYRINGE 1 EACH IV SCH (10:50)
[2019-10-04] MEDS: DILTIAZEM CD 300 MG CAPSULE PO SCH (10:50)
[2019-10-04] MEDS ORDERED: PHYTONADIONE 10 MG/1 ML AMP SUBCUT ONE (11:48)
[2019-10-04] MEDS ORDERED: SODIUM CHLORIDE 0.9% 1,000 ML IV PRN (11:49)
[2019-10-04] MEDS ORDERED: POLYETHYLENE GLYCOL 3350/ELECTROLYTES 4,000 ML BOTTLE PEG ONE (16:00)
[2019-10-04] MEDS ORDERED: MAGNESIUM CITRATE 300 ML BOTTLE PO ONE (21:00)
[2019-10-05] MEDS: BISACODYL 5 MG TABLET PO SCH (00:27)
[2019-10-05] MEDS: hydrALAZINE 20 MG/1 ML VIAL IV PRN ×2 (04:18→17:53)
[2019-10-05] MEDS: SODIUM BICARB INJ 50 MEQ in SODIUM CHLORIDE 0.45% 1,000 ML IV SCH ×2 (04:55→21:55)
[2019-10-05] MEDS: PANTOPRAZOLE 40 MG TABLET PO SCH ×2 (05:53→17:48)
[2019-10-05 06:17] LABS: Basophils % 0.3 % (0.0-0.8); Eosinophils # 0.2 10*3/uL (0.0-0.87); Eosinophils % 2.3 % (0.00-10.9); Hematocrit 31.8 VOL% (35.7-47.0); Hemoglobin 9.9 GM/DL (12.0-16.0); Immature Granulocytes % 1.5 %; Immature Granulocytes Absolute 0.11 #; Lymphocytes # 0.5 10*3/uL (1.4-4.0); Lymphocytes % 6.6 % (21.3-54.2); Mean Corpuscular HGB Conc 31.1 GM/DL (32-36); Mean Corpuscular Volume 85.5 FL (87-102); Mean Platelet Volume 9.5 FL (9.6-12.0); Monocytes % 9.1 % (1.7-12.7); Neutrophils % 80.2 % (38.7-73.9); Platelet Count 344 T/CUMM (130-400); Red Blood Count 3.72 MC/CUMM (3.8-5.5); Red Cell Distribution Width 15.9 % (9.3-17.3); White Blood Count 7.4 T/CUMM (4-12)
[2019-10-05 06:26] LABS: INR 1.7; PT Patient Result 18.1 SECS (9.6-12.2)
[2019-10-05] MEDS ORDERED: SODIUM CHLORIDE 0.9% 1,000 ML IV PRN (06:34)
[2019-10-05 06:39] LABS: Calcium 9.2 MG/DL (8.5-10.1); Osmolality,Calculated 288.8 MOS/KG (273-304)
[2019-10-05] MEDS: DILTIAZEM CD 300 MG CAPSULE PO SCH (08:20)
[2019-10-05] MEDS: ISOSORBIDE MONONITRATE 60 MG TABLET PO SCH (08:21)
[2019-10-05] MEDS: cefTRIAXone 1,000 MG in SYRINGE 1 EACH IV SCH (08:21)
[2019-10-05] MEDS: carvediloL 25 MG TABLET PO SCH ×2 (08:21→20:45)
[2019-10-05] MEDS: POTASSIUM CHLORIDE RIDER 10 MEQ in PREMIX 1 EACH IV SCH ×4 (09:21→16:55)
[2019-10-05] MEDS ORDERED: propofoL 200 MG/20 ML VIAL IV ONE (09:30)
[2019-10-05] MEDS ORDERED: LIDOCAINE 2% 5 ML VIAL ONE (09:30)
[2019-10-05] MEDS ORDERED: ETOMIDATE 20 MG/10 ML VIAL IV ONE (09:30)
[2019-10-05] MEDS: LINACLOTIDE 145 MCG CAPSULE PO SCH (14:00)
[2019-10-06] MEDS: PANTOPRAZOLE 40 MG TABLET PO SCH ×2 (05:49→20:59)
[2019-10-06 07:04] LABS: Basophils % 0.4 % (0.0-0.8); Eosinophils # 0.2 10*3/uL (0.0-0.87); Eosinophils % 2.7 % (0.00-10.9); Hemoglobin 8.7 GM/DL (12.0-16.0); Immature Granulocytes % 1.3 %; Immature Granulocytes Absolute 0.09 #; Lymphocytes # 0.8 10*3/uL (1.4-4.0); Lymphocytes % 10.5 % (21.3-54.2); Mean Corpuscular Volume 88.1 FL (87-102); Mean Platelet Volume 9.1 FL (9.6-12.0); Monocytes % 10.3 % (1.7-12.7); Neutrophils % 74.8 % (38.7-73.9); Platelet Count 295 T/CUMM (130-400); Red Blood Count 3.29 MC/CUMM (3.8-5.5); Red Cell Distribution Width 15.9 % (9.3-17.3); White Blood Count 7.2 T/CUMM (4-12)
[2019-10-06] MEDS: ACETAMINOPHEN 325 MG TABLET PO PRN (08:56)
[2019-10-06] MEDS: cefTRIAXone 1,000 MG in SYRINGE 1 EACH IV SCH (08:57)
[2019-10-06] MEDS: LINACLOTIDE 145 MCG CAPSULE PO SCH (08:57)
[2019-10-06] MEDS: carvediloL 25 MG TABLET PO SCH ×2 (08:57→20:59)
[2019-10-06] MEDS: DILTIAZEM CD 300 MG CAPSULE PO SCH (08:58)
[2019-10-06] MEDS: ISOSORBIDE MONONITRATE 60 MG TABLET PO SCH (08:58)
[2019-10-06] MEDS: hydroCHLOROthiazide 25 MG TABLET PO SCH (08:58)
[2019-10-06] MEDS: SODIUM BICARB INJ 50 MEQ in SODIUM CHLORIDE 0.45% 1,000 ML IV SCH (20:59)
[2019-10-06] MEDS: hydrALAZINE 20 MG/1 ML VIAL IV PRN (21:00)
[2019-10-07] MEDS: ACETAMINOPHEN 325 MG TABLET PO PRN (04:17)
[2019-10-07] MEDS: hydrALAZINE 20 MG/1 ML VIAL IV PRN (05:33)
[2019-10-07] MEDS: PANTOPRAZOLE 40 MG TABLET PO SCH (05:33)
[2019-10-07] MEDS ORDERED: hydrALAZINE 25 MG TABLET PO SCH (09:00)
[2019-10-07] MEDS: hydroCHLOROthiazide 25 MG TABLET PO SCH (09:31)
[2019-10-07] MEDS: LINACLOTIDE 145 MCG CAPSULE PO SCH (09:31)
[2019-10-07] MEDS: DILTIAZEM CD 300 MG CAPSULE PO SCH (09:31)
[2019-10-07] MEDS: carvediloL 25 MG TABLET PO SCH (09:31)
[2019-10-07] MEDS: ISOSORBIDE MONONITRATE 60 MG TABLET PO SCH (09:31)
[2019-10-07 12:17] VITALS: BP 187/41
== END 2019-10-07 12:14 | DRG 812 ==
LOC: EDBD → EDUNIT# → N.ED 07:58 → SUATTDRO 10:15 → N.EDINP 10:15 → N.2E 10:49
PROVIDERS: ADMIT Internal Medicine; ATTEND Internal Medicine

== ENCOUNTER 2019-11-21 20:45 | Inpatient (IN) ==
[2019-11-21] MEDS ORDERED: SODIUM CHLORIDE 0.9% 1,000 ML IV STA (21:05)
[2019-11-21] MEDS ORDERED: PANTOPRAZOLE INJ 80 MG in SODIUM CHLORIDE 0.9% 100 ML IV STA (21:05)
[2019-11-21] MEDS ORDERED: ONDANSETRON 4 MG/2 ML VIAL IV STA (21:05)
[2019-11-21 21:26] LABS: Basophils % 0.2 % (0.0-0.8); Hematocrit 23.5 VOL% (35.7-47.0); Immature Granulocytes % 1.2 %; Immature Granulocytes Absolute 0.14 #; Lymphocytes # 0.7 10*3/uL (1.4-4.0); Lymphocytes % 5.6 % (21.3-54.2); Mean Corpuscular HGB Conc 29.8 GM/DL (32-36); Mean Corpuscular Volume 91.4 FL (87-102); Mean Platelet Volume 9.7 FL (9.6-12.0); Monocytes % 5.3 % (1.7-12.7); Neutrophils % 87.7 % (38.7-73.9); Platelet Count 386 T/CUMM (130-400); Red Blood Count 2.57 MC/CUMM (3.8-5.5); Red Cell Distribution Width 18.7 % (9.3-17.3); White Blood Count 11.7 T/CUMM (4-12)
[2019-11-21] MEDS ORDERED: PANTOPRAZOLE 40 MG VIAL IV ONE ×3 (21:27→22:19)
[2019-11-21] MEDS ORDERED: SODIUM CHLORIDE 0.9% 100 ML IV ONE (21:27)
[2019-11-21 21:50] LABS: Albumin 2.5 G/DL (3.4-5.0); Bilirubin,Total 0.4 MG/DL (0.2-1.0); Calcium 9.2 MG/DL (8.5-10.1); Osmolality,Calculated 331.7 MOS/KG (273-304); Total Protein 7.4 G/DL (6.4-8.3)
[2019-11-21] MEDS ORDERED: MORPHINE 4 MG/1 ML VIAL IV STA (22:40)
[2019-11-21 23:03] LABS: INR 15.6; PT Patient Result 144.6 SECS (9.8-11.9)
[2019-11-21] MEDS ORDERED: PHYTONADIONE INJ 10 MG in SODIUM CHLORIDE 0.9% 50 ML IV STA (23:03)
[2019-11-21 23:04] LABS: Partial Thromboplastin Time 109.7 SECS (23.9-33.8)
[2019-11-21] MEDS ORDERED: PHYTONADIONE 10 MG/1 ML AMP ONE (23:07)
[2019-11-21 23:30] LABS: Apearance,Urine Slightly Hazy (Clear); Bacteria,Urine Occasional /HPF (Few); Bilirubin,Urine Negative (Negative); Blood, Urine Negative (Negative); Glucose,Urine (UA) Negative (Negative); Ketones,Urine 5 mg/dL (Negative); Mucus,Urine Occasional /LPF (Occasional); Nitrite,Urine Negative (Negative); Protein,Urine 100 MG/DL; RBC,Urine 19 /HPF (0-4); Squamous Epithelial Cell,Urine Occasional /HPF (0-10); Urine Color Yellow (Yellow); Urine Specific Gravity 1.016 (1.001-1.035); Urine Urobilinogen < 2.0 EU/DL (0.2-1.0); WBC,Urine 2 /HPF (0-6)
[2019-11-21] MEDS ORDERED: METOPROLOL TARTRATE 5 MG/5 ML VIAL IV ONE (23:44)
[2019-11-21] MEDS ORDERED: METOPROLOL TARTRATE 5 MG/5 ML VIAL IV STA (23:48)
[2019-11-22] MEDS: PANTOPRAZOLE INJ 200 MG in SODIUM CHLORIDE 0.9% 250 ML IV SCH ×2 (00:17→22:51)
[2019-11-22] MEDS ORDERED: ONDANSETRON 4 MG/2 ML VIAL IV PRN (00:20)
[2019-11-22] MEDS ORDERED: SODIUM CHLORIDE 0.9% 1,000 ML IV PRN ×2 (00:25→16:14)
[2019-11-22] MEDS ORDERED: hydrALAZINE 20 MG/1 ML VIAL IV PRN (04:57)
[2019-11-22] MEDS ORDERED: DILTIAZEM 50 MG/10 ML VIAL IV ONE (05:36)
[2019-11-22] MEDS ORDERED: METOPROLOL TARTRATE 5 MG/5 ML VIAL IV ONE (05:57)
[2019-11-22] MEDS ORDERED: dilTIAZem Drip 125 MG/125 ML PREMIX IV SCH (07:00)
[2019-11-22] MEDS ORDERED: predniSONE 20 MG TABLET PO SCH (09:00)
[2019-11-22] MEDS: DILTIAZEM CD 300 MG CAPSULE PO SCH (09:33)
[2019-11-22] MEDS: DOXAZOSIN 4 MG TABLET PO SCH (09:33)
[2019-11-22] MEDS: CALCIUM (CARBONATE) 600 MG TABLET PO SCH (09:33)
[2019-11-22] MEDS: carvediloL 25 MG TABLET PO SCH ×2 (09:36→16:47)
[2019-11-22 12:44] LABS: Basophils % 0.1 % (0.0-0.8); Eosinophils % 0.1 % (0.00-10.9); Hematocrit 23.5 VOL% (35.7-47.0); Hemoglobin 7.1 GM/DL (12.0-16.0); Immature Granulocytes % 1.8 %; Immature Granulocytes Absolute 0.17 #; Lymphocytes # 0.4 10*3/uL (1.4-4.0); Lymphocytes % 3.9 % (21.3-54.2); Mean Corpuscular HGB Conc 30.2 GM/DL (32-36); Mean Platelet Volume 9.6 FL (9.6-12.0); Monocytes % 3.1 % (1.7-12.7); Platelet Count 261 T/CUMM (130-400); Red Cell Distribution Width 17.3 % (9.3-17.3); White Blood Count 9.5 T/CUMM (4-12)
[2019-11-22 12:53] LABS: INR 1.3; PT Patient Result 13.4 SECS (9.8-11.9)
[2019-11-22 13:01] LABS: Albumin 2.2 G/DL (3.4-5.0); Bilirubin,Total 0.6 MG/DL (0.2-1.0); Calcium 8.6 MG/DL (8.5-10.1); Osmolality,Calculated 330.6 MOS/KG (273-304); Total Protein 6.4 G/DL (6.4-8.3)
[2019-11-22 14:29] LABS: Eosinophils 2 % (0-10); Lymphocytes 8 % (20-55); Segmented Neutrophils 88 % (50-85); Total Cells Counted 100
[2019-11-22 14:30] LABS: Platelet Estimate Adequate
[2019-11-22] MEDS ORDERED: PHYTONADIONE INJ 5 MG in SODIUM CHLORIDE 0.9% 50 ML IV ONE (16:15)
[2019-11-22] MEDS: FLUTICASONE/SALMETEROL 250-50 DISKUS 14 DOSE INH SCH (16:47)
[2019-11-22] MEDS: POTASSIUM CHLORIDE RIDER 10 MEQ in PREMIX 1 EACH IV SCH ×2 (16:57→18:11)
[2019-11-22] MEDS: ESCITALOPRAM 10 MG TABLET PO SCH (23:50)
[2019-11-22] MEDS: SIMVASTATIN 40 MG TABLET PO SCH (23:50)
[2019-11-23] MEDS: PANTOPRAZOLE INJ 200 MG in SODIUM CHLORIDE 0.9% 250 ML IV SCH (04:37)
[2019-11-23 06:51] LABS: Calcium 8.3 MG/DL (8.5-10.1); Osmolality,Calculated 324.7 MOS/KG (273-304)
[2019-11-23 09:41] LABS: Basophils % 0.2 % (0.0-0.8); Eosinophils # 0.1 10*3/uL (0.0-0.87); Eosinophils % 0.6 % (0.00-10.9); Hematocrit 23.1 VOL% (35.7-47.0); Hemoglobin 7.2 GM/DL (12.0-16.0); Immature Granulocytes % 1.8 %; Immature Granulocytes Absolute 0.16 #; Lymphocytes # 1.2 10*3/uL (1.4-4.0); Lymphocytes % 13.4 % (21.3-54.2); Mean Corpuscular HGB Conc 31.2 GM/DL (32-36); Mean Corpuscular Volume 93.1 FL (87-102); Mean Platelet Volume 9.4 FL (9.6-12.0); Monocytes % 12.3 % (1.7-12.7); Neutrophils % 71.7 % (38.7-73.9); Platelet Count 216 T/CUMM (130-400); Red Blood Count 2.48 MC/CUMM (3.8-5.5); White Blood Count 8.9 T/CUMM (4-12)
[2019-11-23] MEDS: FLUTICASONE/SALMETEROL 250-50 DISKUS 14 DOSE INH SCH (09:41)
[2019-11-23] MEDS: carvediloL 25 MG TABLET PO SCH ×2 (09:41→16:49)
[2019-11-23] MEDS: CALCIUM (CARBONATE) 600 MG TABLET PO SCH (09:41)
[2019-11-23] MEDS: DOXAZOSIN 4 MG TABLET PO SCH (09:42)
[2019-11-23] MEDS: DILTIAZEM CD 300 MG CAPSULE PO SCH (09:43)
[2019-11-23 09:50] LABS: PT Patient Result 11.1 SECS (9.8-11.9)
[2019-11-23] MEDS ORDERED: SODIUM CHLOR 0.9% KCL 40 MEQ 40 MEQ/1,000 ML BAG IV SCH (12:30)
[2019-11-23] MEDS: SODIUM BICARBONATE 650 MG TABLET PO SCH ×2 (14:16→20:25)
[2019-11-23] MEDS: ACETAMINOPHEN 325 MG TABLET PO PRN (16:48)
[2019-11-23] MEDS: ESCITALOPRAM 10 MG TABLET PO SCH (20:25)
[2019-11-23] MEDS: SIMVASTATIN 40 MG TABLET PO SCH (20:25)
[2019-11-23] MEDS ORDERED: PANTOPRAZOLE 40 MG TABLET PO SCH (21:00)
[2019-11-24] MEDS: ACETAMINOPHEN 325 MG TABLET PO PRN (06:16)
[2019-11-24 06:21] LABS: Basophils % 0.4 % (0.0-0.8); Eosinophils # 0.1 10*3/uL (0.0-0.87); Eosinophils % 1.4 % (0.00-10.9); Hematocrit 28.7 VOL% (35.7-47.0); Immature Granulocytes % 2.4 %; Immature Granulocytes Absolute 0.22 #; Lymphocytes % 10.6 % (21.3-54.2); Mean Corpuscular HGB Conc 31.4 GM/DL (32-36); Mean Corpuscular Volume 93.5 FL (87-102); Mean Platelet Volume 10.2 FL (9.6-12.0); Monocytes % 10.8 % (1.7-12.7); Neutrophils % 74.4 % (38.7-73.9); Platelet Count 207 T/CUMM (130-400); Red Blood Count 3.07 MC/CUMM (3.8-5.5); Red Cell Distribution Width 17.2 % (9.3-17.3); White Blood Count 9.3 T/CUMM (4-12)
[2019-11-24 06:32] LABS: INR 1.2; PT Patient Result 13.1 SECS (9.8-11.9); Partial Thromboplastin Time 28.2 SECS (23.9-33.8)
[2019-11-24 06:39] LABS: Calcium 8.1 MG/DL (8.5-10.1); Osmolality,Calculated 318.8 MOS/KG (273-304)
[2019-11-24] MEDS: DOXAZOSIN 4 MG TABLET PO SCH (09:18)
[2019-11-24] MEDS: SODIUM BICARBONATE 650 MG TABLET PO SCH ×2 (09:19→20:05)
[2019-11-24] MEDS: DILTIAZEM CD 300 MG CAPSULE PO SCH (09:19)
[2019-11-24] MEDS: ISOSORBIDE MONONITRATE 60 MG TABLET PO SCH (09:19)
[2019-11-24] MEDS: FUROSEMIDE 40 MG TABLET PO SCH (09:19)
[2019-11-24] MEDS: POTASSIUM CHLORIDE 10 MEQ TABLET PO SCH (09:20)
[2019-11-24] MEDS: carvediloL 25 MG TABLET PO SCH ×2 (09:20→17:40)
[2019-11-24] MEDS: CALCIUM (CARBONATE) 600 MG TABLET PO SCH (09:21)
[2019-11-24] MEDS: hydrALAZINE 25 MG TABLET PO SCH ×2 (09:21→20:05)
[2019-11-24] MEDS: hydroCHLOROthiazide 25 MG TABLET PO SCH (09:21)
[2019-11-24] MEDS: FLUTICASONE/SALMETEROL 250-50 DISKUS 14 DOSE INH SCH (09:24)
[2019-11-24] MEDS ORDERED: TUBERCULIN SKIN TEST 0.1 ML SYRINGE INTRADERM ONE (17:00)
[2019-11-24] MEDS: PANTOPRAZOLE 40 MG TABLET PO SCH (17:40)
[2019-11-24] MEDS: ESCITALOPRAM 10 MG TABLET PO SCH (20:04)
[2019-11-24] MEDS: SIMVASTATIN 40 MG TABLET PO SCH (20:05)
[2019-11-25] MEDS: PANTOPRAZOLE 40 MG TABLET PO SCH ×2 (05:32→18:00)
[2019-11-25 06:33] LABS: Basophils % 0.5 % (0.0-0.8); Eosinophils # 0.2 10*3/uL (0.0-0.87); Eosinophils % 2.5 % (0.00-10.9); Hematocrit 28.8 VOL% (35.7-47.0); Hemoglobin 9.1 GM/DL (12.0-16.0); Immature Granulocytes % 2.7 %; Immature Granulocytes Absolute 0.23 #; Lymphocytes # 0.9 10*3/uL (1.4-4.0); Lymphocytes % 10.8 % (21.3-54.2); Mean Corpuscular HGB Conc 31.6 GM/DL (32-36); Mean Corpuscular Volume 93.2 FL (87-102); Mean Platelet Volume 10.2 FL (9.6-12.0); Monocytes % 10.4 % (1.7-12.7); Neutrophils % 73.1 % (38.7-73.9); Platelet Count 206 T/CUMM (130-400); Red Blood Count 3.09 MC/CUMM (3.8-5.5); Red Cell Distribution Width 16.9 % (9.3-17.3); White Blood Count 8.5 T/CUMM (4-12)
[2019-11-25 07:01] LABS: Calcium 7.9 MG/DL (8.5-10.1)
[2019-11-25] MEDS: hydroCHLOROthiazide 25 MG TABLET PO SCH (08:45)
[2019-11-25] MEDS: DOXAZOSIN 4 MG TABLET PO SCH (08:45)
[2019-11-25] MEDS: FUROSEMIDE 40 MG TABLET PO SCH (08:45)
[2019-11-25] MEDS: carvediloL 25 MG TABLET PO SCH ×2 (08:46→18:00)
[2019-11-25] MEDS: hydrALAZINE 25 MG TABLET PO SCH ×2 (08:46→21:42)
[2019-11-25] MEDS: CALCIUM (CARBONATE) 600 MG TABLET PO SCH (08:47)
[2019-11-25] MEDS: POTASSIUM CHLORIDE 10 MEQ TABLET PO SCH (08:47)
[2019-11-25] MEDS: ISOSORBIDE MONONITRATE 60 MG TABLET PO SCH (08:47)
[2019-11-25] MEDS: DILTIAZEM CD 300 MG CAPSULE PO SCH (08:47)
[2019-11-25] MEDS: SODIUM BICARBONATE 650 MG TABLET PO SCH ×2 (08:47→21:43)
[2019-11-25] MEDS: FLUTICASONE/SALMETEROL 250-50 DISKUS 14 DOSE INH SCH (08:49)
[2019-11-25] MEDS: SIMVASTATIN 40 MG TABLET PO SCH (21:42)
[2019-11-25] MEDS: ESCITALOPRAM 10 MG TABLET PO SCH (21:44)
[2019-11-26] MEDS: PANTOPRAZOLE 40 MG TABLET PO SCH ×2 (06:10→17:40)
[2019-11-26] MEDS: hydrALAZINE 25 MG TABLET PO SCH (08:55)
[2019-11-26] MEDS: SODIUM BICARBONATE 650 MG TABLET PO SCH (08:56)
[2019-11-26] MEDS: CALCIUM (CARBONATE) 600 MG TABLET PO SCH (08:56)
[2019-11-26] MEDS: POTASSIUM CHLORIDE 10 MEQ TABLET PO SCH (08:56)
[2019-11-26] MEDS: ISOSORBIDE MONONITRATE 60 MG TABLET PO SCH (08:56)
[2019-11-26] MEDS: carvediloL 25 MG TABLET PO SCH ×2 (08:56→17:40)
[2019-11-26] MEDS: DOXAZOSIN 4 MG TABLET PO SCH (08:56)
[2019-11-26] MEDS: FUROSEMIDE 40 MG TABLET PO SCH (08:57)
[2019-11-26] MEDS: FLUTICASONE/SALMETEROL 250-50 DISKUS 14 DOSE INH SCH (08:57)
[2019-11-26] MEDS: DILTIAZEM CD 300 MG CAPSULE PO SCH (08:57)
[2019-11-26] MEDS: hydroCHLOROthiazide 25 MG TABLET PO SCH (08:57)
[2019-11-26 16:03] VITALS: BP 155/70
== END 2019-11-26 17:57 | disposition home or self-care (01) | DRG 813 ==
LOC: EDUNIT# → EDBD → N.ED 20:45 → N.EDINP 11-22 00:20 → SUATTDRO 11-22 00:20 → N.3E 11-22 01:16 → N.TELES 11-22 06:27
PROVIDERS: ADMIT Internal Medicine; ATTEND Internal Medicine

== ENCOUNTER 2020-06-15 10:36 | Observation (INO) ==
[2020-06-15] MEDS ORDERED: FUROSEMIDE 100 MG/10 ML VIAL IV STA (11:21)
[2020-06-15 11:37] LABS: Basophils % 0.2 % (0.0-0.8); Eosinophils % 0.1 % (0.00-10.9); Hematocrit 28.6 VOL% (35.7-47.0); Immature Granulocytes % 1.6 %; Immature Granulocytes Absolute 0.19 #; Lymphocytes # 0.6 10*3/uL (1.4-4.0); Lymphocytes % 4.5 % (21.3-54.2); Mean Corpuscular HGB Conc 31.5 GM/DL (32-36); Mean Corpuscular Volume 97.9 FL (87-102); Mean Platelet Volume 9.3 FL (9.6-12.0); Monocytes % 5.2 % (1.7-12.7); Neutrophils % 88.4 % (38.7-73.9); Platelet Count 272 T/CUMM (130-400); Red Blood Count 2.92 MC/CUMM (3.8-5.5); Red Cell Distribution Width 12.5 % (9.3-17.3); White Blood Count 12.1 T/CUMM (4-12)
[2020-06-15 11:56] LABS: Hypochromasia 1+; Lymphocytes 9 % (20-55); Microcytosis 1+; Platelet Estimate Adequate; Segmented Neutrophils 83 % (50-85); Total Cells Counted 100
[2020-06-15 12:01] LABS: Alanine Aminotransferase 14 U/L (13-56); Albumin 2.5 G/DL (3.4-5.0); Alkaline Phosphatase 67 U/L (45-117); Aspartate Amino Transferase 11 U/L (0-37); Bilirubin,Total < 0.39 MG/DL (0.2-1.0); Blood Urea Nitrogen 78 MG/DL (7-18); Calcium 8.6 MG/DL (8.5-10.1); Estimated Glom Filtration Rate 11 ML/MIN; Glucose 143 MG/DL (74-106); Osmolality,Calculated 310.8 MOS/KG (273-304); Total Protein 6.3 G/DL (6.4-8.3)
[2020-06-15] MEDS ORDERED: ONDANSETRON 4 MG/2 ML VIAL IV PRN (12:59)
[2020-06-15] MEDS ORDERED: hydrALAZINE 20 MG/1 ML VIAL IV PRN (12:59)
[2020-06-15] MEDS ORDERED: ACETAMINOPHEN 325 MG TABLET PO PRN (12:59)
[2020-06-15] MEDS ORDERED: guaiFENesin/DM ER 600-30 MG TABLET PO PRN (12:59)
[2020-06-15] MEDS ORDERED: GLUCAGON 1 MG VIAL IM PRN (12:59)
[2020-06-15] MEDS ORDERED: DEXTROSE 50% 25 GM/50 ML VIAL IV PRN (12:59)
[2020-06-15] MEDS ORDERED: ENOXAPARIN 40 MG/0.4 ML SYRINGE SUBCUT SCH (13:00)
[2020-06-15 13:47] LABS: Risk Ratio 2.71; Thyroid Stimulating Hormone 1.17 uIU/ml (0.358-3.74)
[2020-06-15] MEDS ORDERED: POLYETHYLENE GLYCOL POWDER 17 GM PACK PO PRN (14:33)
[2020-06-15 15:35] LABS: Bacteria,Urine Occasional /HPF (Few); Bilirubin,Urine Negative (Negative); Blood, Urine Negative (Negative); Glucose,Urine (UA) Negative (Negative); Ketones,Urine Negative (Negative); Mucus,Urine Occasional /LPF (Occasional); Nitrite,Urine Negative (Negative); Protein,Urine 30 MG/DL; RBC,Urine 3 /HPF (0-4); Squamous Epithelial Cell,Urine Occasional /HPF (0-10); Urine Appearance Slightly Hazy (Clear); Urine Color Yellow (Yellow); Urine Urobilinogen < 2.0 EU/DL (0.2-1.0); WBC,Urine 3 /HPF (0-6)
[2020-06-15] MEDS ORDERED: cloNIDine 0.1 MG TABLET ONE (15:41)
[2020-06-15] MEDS ORDERED: ENOXAPARIN 40 MG/0.4 ML SYRINGE ONE (15:42)
[2020-06-15] MEDS ORDERED: INFLUENZA VIRUS VACCINE 0.5 ML SYRINGE IM ONE (17:35)
[2020-06-15] MEDS: FUROSEMIDE 40 MG/4 ML VIAL IV SCH (19:00)
[2020-06-15] MEDS: hydrALAZINE 25 MG TABLET PO SCH (20:51)
[2020-06-15] MEDS: ESCITALOPRAM 10 MG TABLET PO SCH (20:51)
[2020-06-16 05:57] LABS: Basophils % 0.2 % (0.0-0.8); Eosinophils # 0.2 10*3/uL (0.0-0.87); Eosinophils % 1.6 % (0.00-10.9); Hematocrit 25.6 VOL% (35.7-47.0); Hemoglobin 8.1 GM/DL (12.0-16.0); Immature Granulocytes % 0.9 %; Lymphocytes # 0.8 10*3/uL (1.4-4.0); Lymphocytes % 7.2 % (21.3-54.2); Mean Corpuscular HGB Conc 31.6 GM/DL (32-36); Mean Corpuscular Volume 95.5 FL (87-102); Mean Platelet Volume 9.9 FL (9.6-12.0); Monocytes % 5.7 % (1.7-12.7); Neutrophils % 84.4 % (38.7-73.9); Platelet Count 301 T/CUMM (130-400); Red Blood Count 2.68 MC/CUMM (3.8-5.5); Red Cell Distribution Width 12.4 % (9.3-17.3); White Blood Count 11.2 T/CUMM (4-12)
[2020-06-16 06:06] LABS: Calcium 8.8 MG/DL (8.5-10.1); Osmolality,Calculated 306.1 MOS/KG (273-304)
[2020-06-16] MEDS ORDERED: hydroCHLOROthiazide 25 MG TABLET PO SCH (09:00)
[2020-06-16] MEDS: ASPIRIN EC 81 MG TABLET PO SCH (10:04)
[2020-06-16] MEDS: DILTIAZEM CD 300 MG CAPSULE PO SCH (10:04)
[2020-06-16] MEDS: FLUTICASONE/SALMETEROL 250-50 DISKUS 14 DOSE INH SCH (10:04)
[2020-06-16] MEDS: hydrALAZINE 25 MG TABLET PO SCH ×2 (10:04→23:52)
[2020-06-16] MEDS: DOCUSATE SODIUM 100 MG CAPSULE PO SCH (10:05)
[2020-06-16] MEDS: MULTIVITAMIN (CENTRUM) TABLET PO SCH (10:05)
[2020-06-16] MEDS: DOXAZOSIN 4 MG TABLET PO SCH (10:05)
[2020-06-16] MEDS: carvediloL 25 MG TABLET PO SCH (10:05)
[2020-06-16] MEDS: FERROUS SULFATE 325 MG TABLET PO SCH (10:06)
[2020-06-16] MEDS: POTASSIUM CHLORIDE 10 MEQ TABLET PO SCH (10:06)
[2020-06-16] MEDS: predniSONE 20 MG TABLET PO SCH (10:06)
[2020-06-16] MEDS: ISOSORBIDE MONONITRATE 60 MG TABLET PO SCH (10:06)
[2020-06-16] MEDS: CALCIUM (CARBONATE)/VITAMIN D 500 MG-200 UNIT TABLET PO SCH (10:06)
[2020-06-16] MEDS: PANTOPRAZOLE 40 MG TABLET PO SCH (10:06)
[2020-06-16] MEDS: FUROSEMIDE 40 MG/4 ML VIAL IV SCH ×2 (10:09→16:40)
[2020-06-16] MEDS ORDERED: FUROSEMIDE 40 MG/4 ML VIAL IV ONE (12:48)
[2020-06-16] MEDS: ALBUTEROL/IPRATROPIUM 3 ML NEB RESP TX SCH ×3 (14:05→23:35)
[2020-06-16] MEDS ORDERED: SKIN HEALING OINT (AQUAPHOR) 50 GM TUBE TOP PRN (15:16)
[2020-06-16] MEDS: ESCITALOPRAM 10 MG TABLET PO SCH (23:52)
[2020-06-17] MEDS: ALBUTEROL/IPRATROPIUM 3 ML NEB RESP TX SCH ×4 (04:02→15:10)
[2020-06-17 08:18] LABS: Calcium 8.7 MG/DL (8.5-10.1); Osmolality,Calculated 310.8 MOS/KG (273-304)
[2020-06-17] MEDS: predniSONE 20 MG TABLET PO SCH (10:01)
[2020-06-17] MEDS: FUROSEMIDE 40 MG/4 ML VIAL IV SCH (10:01)
[2020-06-17] MEDS: ASPIRIN EC 81 MG TABLET PO SCH (10:02)
[2020-06-17] MEDS: DILTIAZEM CD 300 MG CAPSULE PO SCH (10:02)
[2020-06-17] MEDS: MULTIVITAMIN (CENTRUM) TABLET PO SCH (10:03)
[2020-06-17] MEDS: FERROUS SULFATE 325 MG TABLET PO SCH (10:03)
[2020-06-17] MEDS: CALCIUM (CARBONATE)/VITAMIN D 500 MG-200 UNIT TABLET PO SCH (10:03)
[2020-06-17] MEDS: DOXAZOSIN 4 MG TABLET PO SCH (10:04)
[2020-06-17] MEDS: PANTOPRAZOLE 40 MG TABLET PO SCH (10:04)
[2020-06-17] MEDS: ISOSORBIDE MONONITRATE 60 MG TABLET PO SCH (10:04)
[2020-06-17] MEDS: carvediloL 25 MG TABLET PO SCH (10:04)
[2020-06-17] MEDS: DOCUSATE SODIUM 100 MG CAPSULE PO SCH (10:04)
[2020-06-17] MEDS: POTASSIUM CHLORIDE 10 MEQ TABLET PO SCH (10:04)
[2020-06-17] MEDS: FLUTICASONE/SALMETEROL 250-50 DISKUS 14 DOSE INH SCH (10:05)
[2020-06-17] MEDS: hydrALAZINE 25 MG TABLET PO SCH (10:07)
[2020-06-17 13:26] VITALS: BP 140/75
== END 2020-06-17 15:42 | disposition hospice, home (50) ==
LOC: EDBD → EDUNIT# → N.ED 10:36 → N.EDINP 10:36 → N.TELES 15:12
PROVIDERS: ADMIT Internal Medicine; ATTEND Internal Medicine